=== PATIENT | male | born 1970 | race Caucasian/White ===

== ENCOUNTER 2016-11-01 01:07 | Emergency (ER) | payer SELFPAY ==
[~2016-11-01] VITALS: Ht 177.8 cm; Wt 80.0 kg
[2016-11-01 01:09] VITALS: BP 131/99; PULSE 105; RESP 15; TEMP 98.3; O2SAT 97
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
[2016-11-01 03:59] LABS: EOSINOPHIL # 0.1 TH/MM3 (0-0.4); EOSINOPHIL % 2.1 % (0.0-4.0); LYMPH % 30.4 % (9.0-44.0); LYMPHOCYTE # 1.1 TH/MM3 (1.0-4.8); MEAN CELL VOLUME 103.9 FL (80.0-100.0); MEAN CORPUSCULAR HEMOGLOBIN 36.5 PG (27.0-34.0); MEAN CORPUSCULAR HGB CONC 35.1 % (32.0-36.0); MONO % 10.8 % (0.0-8.0); NEUT % 55.7 % (16.0-70.0); PLATELET COUNT 52 TH/MM3 (150-450); RED BLOOD COUNT 3.08 MIL/MM3 (4.50-5.90); RED CELL DISTRIBUTION WIDTH 12.1 % (11.6-17.2); WHITE BLOOD COUNT 3.6 TH/MM3 (4.0-11.0)
[2016-11-01 04:01] LABS: BICARBONATE 28.9 MEQ/L (21.0-32.0); POTASSIUM 3.3 MEQ/L (3.5-5.1)
[2016-11-01 04:04] LABS: HEMO FLAGS AUTO DIFF
[2016-11-01 05:57] LABS: SCAN/DIFF AUTO DIFF CONFIRMED
[2016-11-01] MEDS ORDERED: POTASSIUM CHLORIDE 10 MEQ CONTROLLED RELEASE TAB PO ONE (06:00)
[2016-11-01 07:57] VITALS: BP 124/83; PULSE 89; RESP 16; TEMP 97.9; O2SAT 99
--- NOTE | 2016-11-01 16:11 | PD ---
Physical Exam Date Seen by Provider: Nov 01, 2016 Time Seen by Provider: 16:08 Narrative For full history and physical examination please see previous provider's notes. Presented voluntarily to the emergency department for psychiatric evaluation. Data Data Last Documented VS Vital Signs Date Time Temp Pulse Resp B/P (MAP) Pulse Ox O2 Delivery O2 Flow Rate FiO2 11/01/16 07:57 97.9 89 16 124/83 (97) 99 Room Air Orders Orders Complete Blood Count With Diff (11/01/16 01:39) Basic Metabolic Panel (Bmp) (11/01/16 01:39) Psych Screen (11/01/16 01:39) Drug Screen, Random Urine (11/01/16 01:39) Alcohol (Ethanol) (11/01/16 01:39) Potassium Chloride (Kcl) (11/01/16 06:00) Diet Regular Basic (11/01/16 Breakfast) Diet Regular Basic (11/01/16 Lunch) Labs Laboratory Tests Test 11/01/16 03:25 White Blood Count 3.6 TH/MM3 Red Blood Count 3.08 MIL/MM3 Hemoglobin 11.2 GM/DL Hematocrit 32.0 % Mean Corpuscular Volume 103.9 FL Mean Corpuscular Hemoglobin 36.5 PG Mean Corpuscular Hemoglobin Concent 35.1 % Red Cell Distribution Width 12.1 % Platelet Count 52 TH/MM3 Mean Platelet Volume 8.1 FL Neutrophils (%) (Auto) 55.7 % Lymphocytes (%) (Auto) 30.4 % Monocytes (%) (Auto) 10.8 % Eosinophils (%) (Auto) 2.1 % Basophils (%) (Auto) 1.0 % Neutrophils # (Auto) 2.0 TH/MM3 Lymphocytes # (Auto) 1.1 TH/MM3 Monocytes # (Auto) 0.4 TH/MM3 Eosinophils # (Auto) 0.1 TH/MM3 Basophils # (Auto) 0.0 TH/MM3 CBC Comment AUTO DIFF Differential Comment AUTO DIFF CONFIRMED Blood Urea Nitrogen 4 MG/DL Creatinine 0.62 MG/DL Random Glucose 95 MG/DL Calcium Level 8.1 MG/DL Sodium Level 135 MEQ/L Potassium Level 3.3 MEQ/L Chloride Level 98 MEQ/L Carbon Dioxide Level 28.9 MEQ/L Anion Gap 8 MEQ/L Estimat Glomerular Filtration Rate 138 ML/MIN Ethyl Alcohol Level 432 MG/DL [facility] Medical Record Reviewed: Yes Supervised Visit with CHOLO: No Narrative Course Patient is a 46-year-old male that presented voluntarily to the emergency department for psychiatric evaluation. He was seen and evaluated in the emergency Department and medically cleared. He was then seen and evaluated by psychiatric nurse practitioner. Patient was deemed competent and safe to be discharged home. He will follow-up at [facility] on his own for alcohol detox. Diagnosis Primary Impression: Alcohol intoxication Qualified Codes: F10.929 - Alcohol use, unspecified with intoxication, unspecified Additional Impressions: Substance induced mood disorder Thrombocytopenia Hypokalemia Referrals: [facility] 1 day Patient Instructions: Abuse of Alcohol (ED), Alcohol Intoxication (ED), General Instructions Additional Instruction: Avoid excessive intake of alcohol or avoid it altogether Drink more water, eat a well-balanced diet Follow-up with your primary doctor Go to the [facility] for alcohol detox Return to emergency department for any new or worsening symptoms Med/Other Pt SpecificInfo: No Change to Meds Scripts No Active Prescriptions or Reported Meds Disposition: 01 DISCHARGE HOME Condition: Stable Debbie York Nov 01, 2016 16:11
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
== END 2016-11-01 16:19 | disposition home or self-care (01) ==
LOC: NEPD 01:07
DX: F10.229 Alcohol dependence with intoxication, unspecified (principal); F10.24 Alcohol dependence with alcohol-induced mood disorder; D69.6 Thrombocytopenia, unspecified; E87.6 Hypokalemia; F31.9 Bipolar disorder, unspecified; R56.9 Unspecified convulsions; F17.210 Nicotine dependence, cigarettes, uncomplicated; F12.90 Cannabis use, unspecified, uncomplicated; Y90.8 Blood alcohol level of 240 mg/100 ml or more
CPT/HCPCS: 80048; 80307; 85025; 99283

== ENCOUNTER 2016-11-09 22:08 | Emergency (ER) | payer SELFPAY ==
[~2016-11-09] VITALS: Ht 177.8 cm; Wt 70.0 kg
[2016-11-09 22:12] VITALS: BP 158/104; PULSE 102; RESP 16; TEMP 98.3; O2SAT 96
[2016-11-10 04:55] VITALS: BP 128/88; PULSE 77; RESP 18; O2SAT 99
[2016-11-10 05:46] LABS: AUTOMATED NEUTROPHIL # 1.4 TH/MM3 (1.8-7.7); BASOPHIL % 0.7 % (0.0-2.0); EOSINOPHIL # 0.1 TH/MM3 (0-0.4); EOSINOPHIL % 1.9 % (0.0-4.0); HEMATOCRIT 35.9 % (39.0-51.0); LYMPH % 42.5 % (9.0-44.0); LYMPHOCYTE # 1.3 TH/MM3 (1.0-4.8); MEAN CELL VOLUME 103.3 FL (80.0-100.0); MEAN CORPUSCULAR HEMOGLOBIN 36.1 PG (27.0-34.0); MONO % 7.7 % (0.0-8.0); NEUT % 47.2 % (16.0-70.0); PLATELET COUNT 52 TH/MM3 (150-450); RED BLOOD COUNT 3.47 MIL/MM3 (4.50-5.90); RED CELL DISTRIBUTION WIDTH 12.1 % (11.6-17.2)
[2016-11-10 05:50] LABS: HEMO FLAGS AUTO DIFF
[2016-11-10 05:56] LABS: ANION GAP 11 MEQ/L (5-15); AST (GOT) 180 U/L (15-37); BICARBONATE 26.5 MEQ/L (21.0-32.0); BLOOD UREA NITROGEN 3 MG/DL (7-18); CHLORIDE 100 MEQ/L (98-107); GLOMERULAR FILTRATION RATE 150 ML/MIN (>89); POTASSIUM 3.7 MEQ/L (3.5-5.1); SODIUM (NA) 137 MEQ/L (136-145)
[2016-11-10 05:58] LABS: ALT (GPT) 74 U/L (12-78)
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
[2016-11-10 06:02] LABS: ALCOHOL 295 MG/DL (0-5); ALKALINE PHOSPHATASE 151 U/L (45-117); TOTAL BILIRUBIN ADULT 0.5 MG/DL (0.2-1.0)
[2016-11-10 06:40] LABS: SCAN/DIFF AUTO DIFF CONFIRMED
[2016-11-10 06:41] LABS: PLATELET ESTIMATE SMEAR LOW (NORMAL); PLATELET MORPHOLOGY NORMAL (NORMAL)
[2016-11-10 12:20] VITALS: BP 124/80; PULSE 78; RESP 16; TEMP 98.4; O2SAT 98
[2016-11-10 16:34] VITALS: BP 127/78; PULSE 74; RESP 16; O2SAT 98
[2016-11-10] MEDS ORDERED: LORazepam 2 MG TAB PO PRN (17:15)
[2016-11-10] MEDS ORDERED: LORazepam 1 MG TAB PO PRN (17:15)
[2016-11-10] MEDS ORDERED: LORazepam 2 MG/ML VIAL IV PUSH PRN ×4 (17:15)
[2016-11-10] MEDS ORDERED: FLUMAZENIL 0.5 MG/5 ML VIAL IV PUSH PRN (17:15)
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
--- NOTE | 2016-11-10 19:01 | PD ---
Physical Exam Date Seen by Provider: Nov 10, 2016 Time Seen by Provider: 18:57 Data Data Last Documented VS Vital Signs Date Time Temp Pulse Resp B/P (MAP) Pulse Ox O2 Delivery O2 Flow Rate FiO2 11/10/16 16:34 74 16 127/78 (94) 98 Room Air 11/10/16 12:20 98.4 Orders Orders Complete Blood Count With Diff (11/10/16 04:59) Comprehensive Metabolic Panel (11/10/16 04:59) Psych Screen (11/10/16 04:59) Drug Screen, Random Urine (11/10/16 04:59) Alcohol (Ethanol) (11/10/16 04:59) Diet Regular Basic (11/10/16 Lunch) Alcohol Withdrawal Asmt-Ciwa ONCE (11/10/16 17:05) Flumazenil Inj (Romazicon Inj) (11/10/16 17:15) Lorazepam (Ativan) (11/10/16 17:15) Lorazepam Inj (Ativan Inj) (11/10/16 17:15) Lorazepam (Ativan) (11/10/16 17:15) Lorazepam Inj (Ativan Inj) (11/10/16 17:15) Lorazepam Inj (Ativan Inj) (11/10/16 17:15) Lorazepam Inj (Ativan Inj) (11/10/16 17:15) Labs Laboratory Tests Test 11/10/16 05:30 White Blood Count 3.0 TH/MM3 Red Blood Count 3.47 MIL/MM3 Hemoglobin 12.5 GM/DL Hematocrit 35.9 % Mean Corpuscular Volume 103.3 FL Mean Corpuscular Hemoglobin 36.1 PG Mean Corpuscular Hemoglobin Concent 35.0 % Red Cell Distribution Width 12.1 % Platelet Count 52 TH/MM3 Mean Platelet Volume 7.4 FL Neutrophils (%) (Auto) 47.2 % Lymphocytes (%) (Auto) 42.5 % Monocytes (%) (Auto) 7.7 % Eosinophils (%) (Auto) 1.9 % Basophils (%) (Auto) 0.7 % Neutrophils # (Auto) 1.4 TH/MM3 Lymphocytes # (Auto) 1.3 TH/MM3 Monocytes # (Auto) 0.2 TH/MM3 Eosinophils # (Auto) 0.1 TH/MM3 Basophils # (Auto) 0.0 TH/MM3 CBC Comment AUTO DIFF Differential Comment AUTO DIFF CONFIRMED Platelet Estimate LOW Platelet Morphology Comment NORMAL Blood Urea Nitrogen 3 MG/DL Creatinine 0.58 MG/DL Random Glucose 77 MG/DL Total Protein 7.6 GM/DL Albumin 3.7 GM/DL Calcium Level 8.7 MG/DL Alkaline Phosphatase 151 U/L Aspartate Amino Transf (AST/SGOT) 180 U/L Alanine Aminotransferase (ALT/SGPT) 74 U/L Total Bilirubin 0.5 MG/DL Sodium Level 137 MEQ/L Potassium Level 3.7 MEQ/L Chloride Level 100 MEQ/L Carbon Dioxide Level 26.5 MEQ/L Anion Gap 11 MEQ/L Estimat Glomerular Filtration Rate 150 ML/MIN Urine Opiates Screen NEG Urine Barbiturates Screen NEG Urine Amphetamines Screen NEG Urine Benzodiazepines Screen NEG Urine Cocaine Screen NEG Urine Cannabinoids Screen NEG Ethyl Alcohol Level 295 MG/DL MDM Supervised Visit with CHOLO: No Narrative Course 46-year-old male who came to the ED seeking voluntary psychiatric evaluation. He was initially seen by MILAN Soriano and medically cleared. He was evaluated by MILAN Stone and cleared for follow-up with . Please see their notes for full details. On my evaluation the patient is alert and oriented. He has no somatic complaints. GENERAL: Well-nourished, well-developed cooperative white male in no acute distress. SKIN: Focused skin assessment warm/dry. HEAD: Normocephalic. EYES: No scleral icterus. No injection or drainage. NECK: Supple, trachea midline. No JVD or lymphadenopathy. CARDIOVASCULAR: Regular rate and rhythm without murmurs, gallops, or rubs. RESPIRATORY: Breath sounds equal bilaterally. No accessory muscle use. GASTROINTESTINAL: Abdomen soft, non-tender, nondistended. MUSCULOSKELETAL: No cyanosis, or edema. Moves easily from standing to sitting position. BACK: Nontender without obvious deformity. No CVA tenderness. The patient is stable and discharged for outpatient detox with [facility]. Diagnosis Primary Impression: Medical clearance for psychiatric admission Additional Impression: Acute alcohol intoxication Qualified Codes: F10.929 - Alcohol use, unspecified with intoxication, unspecified Referrals: [facility] (Out patient) Additional Instruction: [facility] for detox as discussed with the nurse practitioner. Return to the ED for any urgent or emergent medical condition. Scripts No Active Prescriptions or Reported Meds Disposition: DISCHARGE HOME Condition: Stable Chloe Alejandre Nov 10, 2016 19:01
== END 2016-11-10 19:35 | disposition home or self-care (01) ==
LOC: NEPD 22:08
DX: F10.220 Alcohol dependence with intoxication, uncomplicated (principal); F17.200 Nicotine dependence, unspecified, uncomplicated; Y90.8 Blood alcohol level of 240 mg/100 ml or more
CPT/HCPCS: 80053; 80307; 85025; 99284

== ENCOUNTER 2016-12-24 04:52 | Emergency (ER) | payer OTHER ==
[~2016-12-24] VITALS: Ht 172.7 cm; Wt 80.0 kg
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
[2016-12-24 05:32] VITALS: BP 127/78; PULSE 93; RESP 20; TEMP 97.6
[2016-12-24 05:55] LABS: AUTOMATED NEUTROPHIL # 4.8 TH/MM3 (1.8-7.7); BASOPHIL # 0.1 TH/MM3 (0-0.2); BASOPHIL % 1.3 % (0.0-2.0); EOSINOPHIL # 0.6 TH/MM3 (0-0.4); EOSINOPHIL % 7.6 % (0.0-4.0); HEMATOCRIT 35.1 % (39.0-51.0); HEMO FLAGS DIFF FINAL; LYMPH % 20.8 % (9.0-44.0); LYMPHOCYTE # 1.6 TH/MM3 (1.0-4.8); MEAN CELL VOLUME 104.6 FL (80.0-100.0); MEAN CORPUSCULAR HEMOGLOBIN 36.8 PG (27.0-34.0); MEAN CORPUSCULAR HGB CONC 35.2 % (32.0-36.0); MONO % 7.7 % (0.0-8.0); NEUT % 62.6 % (16.0-70.0); PLATELET COUNT 106 TH/MM3 (150-450); RED BLOOD COUNT 3.35 MIL/MM3 (4.50-5.90); RED CELL DISTRIBUTION WIDTH 12.8 % (11.6-17.2); WHITE BLOOD COUNT 7.7 TH/MM3 (4.0-11.0)
[2016-12-24 06:10] LABS: ALT (GPT) 114 U/L (12-78); ANION GAP 11 MEQ/L (5-15); AST (GOT) 238 U/L (15-37); BLOOD UREA NITROGEN 4 MG/DL (7-18); CHLORIDE 94 MEQ/L (98-107); GLOMERULAR FILTRATION RATE 153 ML/MIN (>89); POTASSIUM 3.6 MEQ/L (3.5-5.1); SODIUM (NA) 131 MEQ/L (136-145)
[2016-12-24 06:13] LABS: ALKALINE PHOSPHATASE 147 U/L (45-117); TOTAL BILIRUBIN ADULT 0.5 MG/DL (0.2-1.0)
[2016-12-24 06:30] LABS: ACETAMINOPHEN LESS THAN 2.0 MCG/ML (10.0-30.0); ALCOHOL 456 MG/DL (0-5)
[2016-12-24] MEDS ORDERED: LORazepam 2 MG/ML VIAL IV PUSH PRN ×4 (07:00)
[2016-12-24] MEDS ORDERED: LORazepam 1 MG TAB PO PRN (07:00)
[2016-12-24] MEDS ORDERED: FLUMAZENIL 0.5 MG/5 ML VIAL IV PUSH PRN (07:00)
[2016-12-24] MEDS ORDERED: SODIUM CHLOR 0.9% 1000 ML INJ 1,000 ML IV ONE (07:00)
[2016-12-24] MEDS ORDERED: LORazepam 2 MG TAB PO PRN (07:00)
[2016-12-24 09:49] VITALS: BP 111/64; PULSE 77; RESP 20; TEMP 97.5; O2SAT 97
[2016-12-24 12:00] VITALS: BP 90/52; PULSE 80; RESP 16; TEMP 98.6; O2SAT 97
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
--- NOTE | 2016-12-24 18:06 | PD ---
Physical Exam Date Seen by Provider: Dec 24, 2016 Time Seen by Provider: 18:03 Narrative 46 yo male here for chen act. patient was examined by previous provider please refer to his note. I was asked to dispo patient. Patient seen and evaluated by Psych nurse MILAN. BA lifted. patient clinically sober. Agrees with outpatient rehab at [facility]. Denies medical complains to me. Feels ready to go home. Data Data Last Documented VS Vital Signs Date Time Temp Pulse Resp B/P (MAP) Pulse Ox O2 Delivery O2 Flow Rate FiO2 12/24/16 12:00 98.6 80 16 90/52 (65) 97 12/24/16 09:49 Room Air Orders Orders Complete Blood Count With Diff (12/24/16 05:03) Comprehensive Metabolic Panel (12/24/16 05:03) Psych Screen (12/24/16 05:03) Drug Screen, Random Urine (12/24/16 05:03) Alcohol (Ethanol) (12/24/16 05:03) Salicylates (Aspirin) (12/24/16 05:03) Tylenol (Acetaminophen) (12/24/16 05:03) Sodium Chlor 0.9% 1000 Ml Inj (Ns 1000 M (12/24/16 07:00) Iv Access Insert/Monitor (12/24/16 06:46) Alcohol Withdrawal Asmt-Ciwa ONCE (12/24/16 06:46) Flumazenil Inj (Romazicon Inj) (12/24/16 07:00) Lorazepam (Ativan) (12/24/16 07:00) Lorazepam Inj (Ativan Inj) (12/24/16 07:00) Lorazepam (Ativan) (12/24/16 07:00) Lorazepam Inj (Ativan Inj) (12/24/16 07:00) Lorazepam Inj (Ativan Inj) (12/24/16 07:00) Lorazepam Inj (Ativan Inj) (12/24/16 07:00) Diet Regular Basic (12/24/16 Breakfast) Diet Regular Basic (12/24/16 Dinner) Ed Discharge Order (12/24/16 17:39) Labs Laboratory Tests Test 12/24/16 05:24 12/24/16 09:45 White Blood Count 7.7 TH/MM3 Red Blood Count 3.35 MIL/MM3 Hemoglobin 12.3 GM/DL Hematocrit 35.1 % Mean Corpuscular Volume 104.6 FL Mean Corpuscular Hemoglobin 36.8 PG Mean Corpuscular Hemoglobin Concent 35.2 % Red Cell Distribution Width 12.8 % Platelet Count 106 TH/MM3 Mean Platelet Volume 8.6 FL Neutrophils (%) (Auto) 62.6 % Lymphocytes (%) (Auto) 20.8 % Monocytes (%) (Auto) 7.7 % Eosinophils (%) (Auto) 7.6 % Basophils (%) (Auto) 1.3 % Neutrophils # (Auto) 4.8 TH/MM3 Lymphocytes # (Auto) 1.6 TH/MM3 Monocytes # (Auto) 0.6 TH/MM3 Eosinophils # (Auto) 0.6 TH/MM3 Basophils # (Auto) 0.1 TH/MM3 CBC Comment DIFF FINAL Differential Comment Blood Urea Nitrogen 4 MG/DL Creatinine 0.57 MG/DL Random Glucose 92 MG/DL Total Protein 7.7 GM/DL Albumin 3.9 GM/DL Calcium Level 8.5 MG/DL Alkaline Phosphatase 147 U/L Aspartate Amino Transf (AST/SGOT) 238 U/L Alanine Aminotransferase (ALT/SGPT) 114 U/L Total Bilirubin 0.5 MG/DL Sodium Level 131 MEQ/L Potassium Level 3.6 MEQ/L Chloride Level 94 MEQ/L Carbon Dioxide Level 26.0 MEQ/L Anion Gap 11 MEQ/L Estimat Glomerular Filtration Rate 153 ML/MIN Salicylates Level LESS THAN 1.7 MG/DL Acetaminophen Level LESS THAN 2.0 MCG/ML Ethyl Alcohol Level 456 MG/DL Urine Opiates Screen NEG Urine Barbiturates Screen NEG Urine Amphetamines Screen NEG Urine Benzodiazepines Screen NEG Urine Cocaine Screen NEG Urine Cannabinoids Screen NEG MDM Medical Record Reviewed: Yes Supervised Visit with CHOLO: No Differential Diagnosis alcohol abuse vs suicidal ideation vs alcohol dependence vs substance induces mood disorder Narrative Course 46 yo male here for chen act. patient was examined by previous provider please refer to his note. I was asked to dispo patient. Patient seen and evaluated by Psych nurse MILAN. BA lifted. patient clinically sober. Agrees with outpatient rehab at [facility]. Denies medical complains to me. Feels ready to go home. Told to follow up with [facility] and given outpatient resource information. See ED if worsening symptoms. Diagnosis Primary Impression: Alcohol dependence with acute alcoholic intoxication Qualified Codes: F10.220 - Alcohol dependence with intoxication, uncomplicated Patient Instructions: General Instructions, Alcohol Use Disorder (ED) Departure Forms: Tests/Procedures Additional Instruction: Contract for safety. Follow-up with [facility]. Return to ED if symptoms get worse. Med/Other Pt SpecificInfo: No Change to Meds Scripts No Active Prescriptions or Reported Meds Disposition: 01 DISCHARGE HOME Condition: Jose Montes Dec 24, 2016 18:06
== END 2016-12-24 18:29 | disposition home or self-care (01) ==
LOC: NEPD 04:52 → NEPJ 18:29
DX: F10.220 Alcohol dependence with intoxication, uncomplicated (principal); F12.10 Cannabis abuse, uncomplicated; F17.200 Nicotine dependence, unspecified, uncomplicated; F31.9 Bipolar disorder, unspecified; F41.9 Anxiety disorder, unspecified; F03.90 Unspecified dementia, unspecified severity, without behavioral disturbance, psychotic disturbance, mood disturbance, and anxiety; R56.9 Unspecified convulsions; Z59.0 Homelessness
CPT/HCPCS: 80053; 80307; 85025; 96360; 99284; J7030

== ENCOUNTER 2017-01-09 23:03 | Emergency (ER) | payer OTHER ==
[2017-01-10] MEDS ORDERED: KETOCONAZOLE 2% CREAM 15 GM TOPICAL ONE (00:15)
[2017-01-10 00:50] LABS: ALT (GPT) 130 U/L (12-78); ANION GAP 9 MEQ/L (5-15); AST (GOT) 230 U/L (15-37); BICARBONATE 25.3 MEQ/L (21.0-32.0); BLOOD UREA NITROGEN 3 MG/DL (7-18); CHLORIDE 91 MEQ/L (98-107); GLOMERULAR FILTRATION RATE 138 ML/MIN (>89); POTASSIUM 3.3 MEQ/L (3.5-5.1); SODIUM (NA) 125 MEQ/L (136-145)
[2017-01-10 00:54] LABS: ALKALINE PHOSPHATASE 124 U/L (45-117); TOTAL BILIRUBIN ADULT 0.6 MG/DL (0.2-1.0)
[2017-01-10 00:57] LABS: ALCOHOL 393 MG/DL (0-5)
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
[2017-01-10 02:00] VITALS: BP 106/59; PULSE 82; RESP 18; TEMP 97.7; O2SAT 96
[2017-01-10 05:58] VITALS: BP 101/65; PULSE 88; RESP 16; TEMP 98.6; O2SAT 98
[2017-01-10 09:24] VITALS: BP 95/50; PULSE 85; RESP 18; O2SAT 97
[2017-01-10 10:47] VITALS: BP 120/56; PULSE 91; RESP 16; O2SAT 98
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
--- NOTE | 2017-01-10 15:54 | PD ---
Physical Exam Time Seen by Provider: 15:[address] Schmitz has evaluated the patient, lifted the Dyer act and cleared the patient for discharge. Data Data Last Documented VS Vital Signs Date Time Temp Pulse Resp B/P (MAP) Pulse Ox O2 Delivery O2 Flow Rate FiO2 01/10/17 10:47 91 16 120/56 (77) 98 Room Air 01/10/17 05:58 98.6 Orders Orders Comprehensive Metabolic Panel (01/10/17 00:06) Psych Screen (01/10/17 00:06) Drug Screen, Random Urine (01/10/17 00:06) Alcohol (Ethanol) (01/10/17 00:06) Ketoconazole 2% Cream (Nizoral 2% Cream) (01/10/17 00:15) Wound Care (01/10/17 00:08) Diet Regular Basic (01/10/17 Breakfast) Diet Regular Basic (01/10/17 Lunch) Diet Regular Basic (01/10/17 Dinner) Labs Laboratory Tests Test 01/10/17 00:10 01/10/17 00:31 Blood Urea Nitrogen 3 MG/DL Creatinine 0.62 MG/DL Random Glucose 94 MG/DL Total Protein 7.4 GM/DL Albumin 3.9 GM/DL Calcium Level 8.8 MG/DL Alkaline Phosphatase 124 U/L Aspartate Amino Transf (AST/SGOT) 230 U/L Alanine Aminotransferase (ALT/SGPT) 130 U/L Total Bilirubin 0.6 MG/DL Sodium Level 125 MEQ/L Potassium Level 3.3 MEQ/L Chloride Level 91 MEQ/L Carbon Dioxide Level 25.3 MEQ/L Anion Gap 9 MEQ/L Estimat Glomerular Filtration Rate 138 ML/MIN Ethyl Alcohol Level 393 MG/DL Urine Opiates Screen NEG Urine Barbiturates Screen NEG Urine Amphetamines Screen NEG Urine Benzodiazepines Screen NEG Urine Cocaine Screen POS Urine Cannabinoids Screen NEG MDM Supervised Visit with CHOLO: No Narrative Course Dr. Schmitz has evaluated the patient, lifted Dyer act and cleared the patient for discharge. Patient contracts safety. Denies suicidal or homicidal ideations. Patient will be provided community resource packet to [facility] for follow-up. Has friends and family for support. Patient was medically cleared by alternate provider prior to psych screening. Patient has been evaluated by psychiatry and and is now cleared for discharge. Diagnosis Primary Impression: Alcohol abuse Referrals: [facility] (Out patient) [facility] Primary Care Physician Psychiatrist Jessica [facility] Patient Instructions: Abuse of Alcohol (ED), Alcohol Dependence (ED), Alcohol Intoxication (ED), General Instructions Additional Instruction: Contract safety to your self and others Stop drinking alcohol Follow-up with psychiatry Follow-up with primary care provider Follow-up with [facility] Return to the emergency department immediately with worsening of symptoms Med/Other Pt SpecificInfo: No Change to Meds, No Meds Exist/No RX given Scripts No Active Prescriptions or Reported Meds Disposition: 01 DISCHARGE HOME Condition: Stable Palma Triana Jan 10, 2017 15:54
== END 2017-01-10 17:23 | disposition home or self-care (01) ==
LOC: NEDAMB 23:03 → NEPJ 01-10 17:23
DX: F10.10 Alcohol abuse, uncomplicated (principal); F14.10 Cocaine abuse, uncomplicated; F31.9 Bipolar disorder, unspecified; F41.9 Anxiety disorder, unspecified; F03.90 Unspecified dementia, unspecified severity, without behavioral disturbance, psychotic disturbance, mood disturbance, and anxiety; R56.9 Unspecified convulsions; F17.200 Nicotine dependence, unspecified, uncomplicated
CPT/HCPCS: 80053; 80307; 99284

== ENCOUNTER 2017-01-13 23:07 | Emergency (ER) | payer OTHER ==
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
[2017-01-14 00:16] LABS: AUTOMATED NEUTROPHIL # 2.2 TH/MM3 (1.8-7.7); BASOPHIL # 0.1 TH/MM3 (0-0.2); BASOPHIL % 2.3 % (0.0-2.0); EOSINOPHIL # 0.9 TH/MM3 (0-0.4); EOSINOPHIL % 17.3 % (0.0-4.0); HEMATOCRIT 33.5 % (39.0-51.0); HEMO FLAGS DIFF FINAL; LYMPH % 28.2 % (9.0-44.0); LYMPHOCYTE # 1.5 TH/MM3 (1.0-4.8); MEAN CELL VOLUME 104.5 FL (80.0-100.0); MEAN CORPUSCULAR HGB CONC 34.4 % (32.0-36.0); MONO % 8.8 % (0.0-8.0); NEUT % 43.4 % (16.0-70.0); PLATELET COUNT 102 TH/MM3 (150-450); RED BLOOD COUNT 3.21 MIL/MM3 (4.50-5.90); RED CELL DISTRIBUTION WIDTH 12.5 % (11.6-17.2); WHITE BLOOD COUNT 5.2 TH/MM3 (4.0-11.0)
[2017-01-14 00:37] LABS: ALT (GPT) 117 U/L (12-78); ANION GAP 7 MEQ/L (5-15); AST (GOT) 201 U/L (15-37); BICARBONATE 26.7 MEQ/L (21.0-32.0); BLOOD UREA NITROGEN 3 MG/DL (7-18); CHLORIDE 99 MEQ/L (98-107); GLOMERULAR FILTRATION RATE 159 ML/MIN (>89); POTASSIUM 3.6 MEQ/L (3.5-5.1); SODIUM (NA) 133 MEQ/L (136-145)
[2017-01-14 00:39] LABS: ALKALINE PHOSPHATASE 114 U/L (45-117); TOTAL BILIRUBIN ADULT 0.3 MG/DL (0.2-1.0)
[2017-01-14 00:51] LABS: ACETAMINOPHEN LESS THAN 2.0 MCG/ML (10.0-30.0); ALCOHOL 450 MG/DL (0-5)
[2017-01-14 09:40] VITALS: BP 101/74; PULSE 98; RESP 18; O2SAT 98
--- NOTE | 2017-01-14 10:21 | EKG ---
Date Performed: 01/14/2017 Time Performed: 00:04:35 PTAGE: 46 years EKG: Sinus rhythm SEPTAL MYOCARDIAL INFARCTION ABNORMAL ECG PREVIOUS TRACING : 08/02/2015 14.40 Compared to the previous tracing tachycardia no longer pres ent DOCTOR: Lissa Self Interpretating Date/Time 01/14/2017 10:19:52
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
--- NOTE | 2017-01-14 12:54 | PD ---
Physical Exam Date Seen by Provider: Jan 14, 2017 Time Seen by Provider: 12:53 Narrative 46-year-old male previously medically cleared for psychiatric evaluation after being Dyer acted. She has been seen by Dr. Schmitz, the psychiatrist and cleared for discharge. Plan is for the patient to follow up with [facility]. Patient continues to be medically stable for discharge at this time. Data Data Last Documented VS Vital Signs Date Time Temp Pulse Resp B/P (MAP) Pulse Ox O2 Delivery O2 Flow Rate FiO2 01/14/17 09:40 98 18 01/14/17 09:40 101/74 (83) 98 Room Air Orders Orders Complete Blood Count With Diff (01/13/17 23:45) Comprehensive Metabolic Panel (01/13/17 23:45) Urinalysis - C+S If Indicated (01/13/17 23:45) Electrocardiogram (01/13/17 23:45) Psych Screen (01/13/17 23:45) Drug Screen, Random Urine (01/13/17 23:45) Alcohol (Ethanol) (01/13/17 23:45) Salicylates (Aspirin) (01/13/17 23:45) Tylenol (Acetaminophen) (01/13/17 23:45) Diet Regular Basic (01/14/17 Breakfast) Diet Regular Basic (01/14/17 Lunch) Labs Laboratory Tests Test 01/14/17 00:00 White Blood Count 5.2 TH/MM3 Red Blood Count 3.21 MIL/MM3 Hemoglobin 11.5 GM/DL Hematocrit 33.5 % Mean Corpuscular Volume 104.5 FL Mean Corpuscular Hemoglobin 36.0 PG Mean Corpuscular Hemoglobin Concent 34.4 % Red Cell Distribution Width 12.5 % Platelet Count 102 TH/MM3 Mean Platelet Volume 7.6 FL Neutrophils (%) (Auto) 43.4 % Lymphocytes (%) (Auto) 28.2 % Monocytes (%) (Auto) 8.8 % Eosinophils (%) (Auto) 17.3 % Basophils (%) (Auto) 2.3 % Neutrophils # (Auto) 2.2 TH/MM3 Lymphocytes # (Auto) 1.5 TH/MM3 Monocytes # (Auto) 0.5 TH/MM3 Eosinophils # (Auto) 0.9 TH/MM3 Basophils # (Auto) 0.1 TH/MM3 CBC Comment DIFF FINAL Differential Comment Blood Urea Nitrogen 3 MG/DL Creatinine 0.55 MG/DL Random Glucose 96 MG/DL Total Protein 7.2 GM/DL Albumin 3.7 GM/DL Calcium Level 8.3 MG/DL Alkaline Phosphatase 114 U/L Aspartate Amino Transf (AST/SGOT) 201 U/L Alanine Aminotransferase (ALT/SGPT) 117 U/L Total Bilirubin 0.3 MG/DL Sodium Level 133 MEQ/L Potassium Level 3.6 MEQ/L Chloride Level 99 MEQ/L Carbon Dioxide Level 26.7 MEQ/L Anion Gap 7 MEQ/L Estimat Glomerular Filtration Rate 159 ML/MIN Salicylates Level 2.2 MG/DL Acetaminophen Level LESS THAN 2.0 MCG/ML Ethyl Alcohol Level 450 MG/DL [facility] Medical Record Reviewed: Yes Supervised Visit with CHOLO: Yes Narrative Course 46-year-old male previously medically cleared for psychiatric evaluation after being Dyer acted. She has been seen by Dr. Schmitz, the psychiatrist and cleared for discharge. Plan is for the patient to follow up with [facility]. Patient continues to be medically stable for discharge at this time. Diagnosis Primary Impression: Alcohol abuse Referrals: [facility] (Out patient) Patient Instructions: Abuse of Alcohol (ED), General Instructions Med/Other Pt SpecificInfo: No Meds Exist/No RX given Scripts No Active Prescriptions or Reported Meds Disposition: 01 DISCHARGE HOME Condition: Stable Dion Cortez Jan 14, 2017 12:54
[2017-01-14 13:14] VITALS: BP 127/70; TEMP 98.2
== END 2017-01-14 13:15 | disposition home or self-care (01) ==
LOC: NEPD 23:07
DX: F10.10 Alcohol abuse, uncomplicated (principal); R94.31 Abnormal electrocardiogram [ECG] [EKG]; F31.9 Bipolar disorder, unspecified; F41.9 Anxiety disorder, unspecified; F03.90 Unspecified dementia, unspecified severity, without behavioral disturbance, psychotic disturbance, mood disturbance, and anxiety; F20.9 Schizophrenia, unspecified; R56.9 Unspecified convulsions; F17.200 Nicotine dependence, unspecified, uncomplicated
CPT/HCPCS: 80053; 80307; 85025; 93005; 99285

== ENCOUNTER 2017-01-18 00:15 | Emergency (ER) | payer OTHER ==
[~2017-01-18] VITALS: Ht 177.8 cm; Wt 77.0 kg
[2017-01-18 00:38] VITALS: BP 136/78; PULSE 78; RESP 16; TEMP 98.4; O2SAT 96
[2017-01-18 01:19] LABS: AUTOMATED NEUTROPHIL # 2.6 TH/MM3 (1.8-7.7); BASOPHIL # 0.1 TH/MM3 (0-0.2); EOSINOPHIL # 0.7 TH/MM3 (0-0.4); EOSINOPHIL % 13.1 % (0.0-4.0); HEMATOCRIT 35.9 % (39.0-51.0); LYMPH % 26.8 % (9.0-44.0); LYMPHOCYTE # 1.4 TH/MM3 (1.0-4.8); MEAN CELL VOLUME 103.7 FL (80.0-100.0); MEAN CORPUSCULAR HEMOGLOBIN 37.4 PG (27.0-34.0); MONO % 8.1 % (0.0-8.0); PLATELET COUNT 126 TH/MM3 (150-450); RED BLOOD COUNT 3.46 MIL/MM3 (4.50-5.90); RED CELL DISTRIBUTION WIDTH 12.4 % (11.6-17.2); WHITE BLOOD COUNT 5.3 TH/MM3 (4.0-11.0)
[2017-01-18 01:25] LABS: BLOOD, URINE NEG (NEG); GLUCOSE,URINE NEG (NEG); KETONE, URINE NEG (NEG); NITRITE,URINE NEG (NEG); PH, URINE 5.5 (5.0-8.5); URINE COLOR YELLOW (YELLW/STRAW)
[2017-01-18 01:26] LABS: HEMO FLAGS AUTO DIFF
[2017-01-18 01:32] LABS: ALT (GPT) 86 U/L (12-78); ANION GAP 11 MEQ/L (5-15); AST (GOT) 149 U/L (15-37); BICARBONATE 26.4 MEQ/L (21.0-32.0); CHLORIDE 94 MEQ/L (98-107); COMMENT (UR) CULT NOT INDICATED; CULTURE IF INDICATED CULT NOT INDICATED; GLOMERULAR FILTRATION RATE 138 ML/MIN (>89); POTASSIUM 3.6 MEQ/L (3.5-5.1); SODIUM (NA) 131 MEQ/L (136-145)
[2017-01-18 01:38] LABS: ALKALINE PHOSPHATASE 130 U/L (45-117); BLOOD UREA NITROGEN 5 MG/DL (7-18); TOTAL BILIRUBIN ADULT 0.4 MG/DL (0.2-1.0)
[2017-01-18 02:03] LABS: PLATELET ESTIMATE SMEAR LOW (NORMAL); PLATELET MORPHOLOGY NORMAL (NORMAL); SCAN/DIFF AUTO DIFF CONFIRMED
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
[2017-01-18 04:19] VITALS: BP 118/66; PULSE 98; RESP 18; TEMP 98.6; O2SAT 99
[2017-01-18 06:22] VITALS: BP 106/57; PULSE 80; RESP 19; TEMP 99.5; O2SAT 95
[2017-01-18 10:30] VITALS: BP 97/56; PULSE 110; RESP 18
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
--- NOTE | 2017-01-18 15:06 | PD ---
Physical Exam Date Seen by Provider: Jan 18, 2017 Time Seen by Provider: 15:05 Narrative Patient previously medically cleared for psychiatric evaluation. Patient is been seen and evaluated by psychiatric staff and felt to be stable for discharge. Patient remains medically stable for discharge at this time. Outpatient plan is per psychiatric note. Data Data Last Documented VS Vital Signs Date Time Temp Pulse Resp B/P (MAP) Pulse Ox O2 Delivery O2 Flow Rate FiO2 01/18/17 10:30 110 18 97/56 (70) Room Air 01/18/17 06:22 99.5 95 Orders Orders Complete Blood Count With Diff (01/18/17 00:48) Comprehensive Metabolic Panel (01/18/17 00:48) Drug Screen, Random Urine (01/18/17 00:48) Urinalysis - C+S If Indicated (01/18/17 00:48) Psych Screen (01/18/17 00:48) Alcohol (Ethanol) (01/18/17 01:49) Diet Regular Basic (01/18/17 Breakfast) Diet Regular Basic (01/18/17 Lunch) Diet Regular Basic (01/18/17 Dinner) Labs Laboratory Tests Test 01/18/17 00:50 White Blood Count 5.3 TH/MM3 Red Blood Count 3.46 MIL/MM3 Hemoglobin 12.9 GM/DL Hematocrit 35.9 % Mean Corpuscular Volume 103.7 FL Mean Corpuscular Hemoglobin 37.4 PG Mean Corpuscular Hemoglobin Concent 36.0 % Red Cell Distribution Width 12.4 % Platelet Count 126 TH/MM3 Mean Platelet Volume 7.6 FL Neutrophils (%) (Auto) 50.0 % Lymphocytes (%) (Auto) 26.8 % Monocytes (%) (Auto) 8.1 % Eosinophils (%) (Auto) 13.1 % Basophils (%) (Auto) 2.0 % Neutrophils # (Auto) 2.6 TH/MM3 Lymphocytes # (Auto) 1.4 TH/MM3 Monocytes # (Auto) 0.4 TH/MM3 Eosinophils # (Auto) 0.7 TH/MM3 Basophils # (Auto) 0.1 TH/MM3 CBC Comment AUTO DIFF Differential Comment AUTO DIFF CONFIRMED Platelet Estimate LOW Platelet Morphology Comment NORMAL Urine Color YELLOW Urine Turbidity CLEAR Urine pH 5.5 Urine Specific [place] 1.006 Urine Protein NEG mg/dL Urine Glucose (UA) NEG mg/dL Urine Ketones NEG mg/dL Urine Occult Blood NEG Urine Nitrite NEG Urine Bilirubin NEG Urine Urobilinogen LESS THAN 2.0 MG/DL Urine Leukocyte Esterase NEG Urine WBC LESS THAN 1 /hpf Microscopic Urinalysis Comment CULT NOT INDICATED Blood Urea Nitrogen 5 MG/DL Creatinine 0.62 MG/DL Random Glucose 89 MG/DL Total Protein 8.0 GM/DL Albumin 4.1 GM/DL Calcium Level 9.2 MG/DL Alkaline Phosphatase 130 U/L Aspartate Amino Transf (AST/SGOT) 149 U/L Alanine Aminotransferase (ALT/SGPT) 86 U/L Total Bilirubin 0.4 MG/DL Sodium Level 131 MEQ/L Potassium Level 3.6 MEQ/L Chloride Level 94 MEQ/L Carbon Dioxide Level 26.4 MEQ/L Anion Gap 11 MEQ/L Estimat Glomerular Filtration Rate 138 ML/MIN Urine Opiates Screen NEG Urine Barbiturates Screen NEG Urine Amphetamines Screen NEG Urine Benzodiazepines Screen NEG Urine Cocaine Screen NEG Urine Cannabinoids Screen NEG Ethyl Alcohol Level 376 MG/DL [facility] Medical Record Reviewed: Yes Supervised Visit with CHOLO: Yes Narrative Course Patient previously medically cleared for psychiatric evaluation. Patient is been seen and evaluated by psychiatric staff and felt to be stable for discharge. Patient remains medically stable for discharge at this time. Outpatient plan is per psychiatric note. Diagnosis Primary Impression: Alcohol dependence with acute alcoholic intoxication Scripts No Active Prescriptions or Reported Meds Disposition: 01 DISCHARGE HOME Condition: Stable Dion Cortez Jan 18, 2017 15:06
[2017-01-18 15:30] VITALS: BP 134/88; PULSE 96; RESP 18; TEMP 98; O2SAT 98
== END 2017-01-18 15:49 | disposition home or self-care (01) ==
LOC: NEDAMB 00:15 → NEPJ 15:49
DX: F10.229 Alcohol dependence with intoxication, unspecified (principal); F31.9 Bipolar disorder, unspecified; F41.9 Anxiety disorder, unspecified; F03.90 Unspecified dementia, unspecified severity, without behavioral disturbance, psychotic disturbance, mood disturbance, and anxiety; F20.9 Schizophrenia, unspecified; F17.200 Nicotine dependence, unspecified, uncomplicated; Z59.0 Homelessness
CPT/HCPCS: 80053; 80307; 81001; 85025; 99285

== ENCOUNTER 2017-02-12 00:39 | Emergency (ER) | payer OTHER ==
[~2017-02-12] VITALS: Ht 177.8 cm; Wt 82.0 kg
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
[2017-02-12 01:23] VITALS: BP 127/78; PULSE 93; RESP 18; TEMP 97.7; O2SAT 98
[2017-02-12 02:01] LABS: AUTOMATED NEUTROPHIL # 2.8 TH/MM3 (1.8-7.7); BASOPHIL # 0.1 TH/MM3 (0-0.2); BASOPHIL % 1.2 % (0.0-2.0); EOSINOPHIL # 0.3 TH/MM3 (0-0.4); EOSINOPHIL % 5.5 % (0.0-4.0); HEMATOCRIT 34.7 % (39.0-51.0); HEMOGLOBIN 12.3 GM/DL (13.0-17.0); LYMPHOCYTE # 1.3 TH/MM3 (1.0-4.8); MEAN CELL VOLUME 102.2 FL (80.0-100.0); MEAN CORPUSCULAR HEMOGLOBIN 36.3 PG (27.0-34.0); MEAN CORPUSCULAR HGB CONC 35.5 % (32.0-36.0); MEAN PLATELET VOLUME 8.8 FL (7.0-11.0); MONO % 14.4 % (0.0-8.0); MONOCYTE # 0.7 TH/MM3 (0-0.9); NEUT % 53.9 % (16.0-70.0); PLATELET COUNT 65 TH/MM3 (150-450); RED CELL DISTRIBUTION WIDTH 12.1 % (11.6-17.2); WHITE BLOOD COUNT 5.2 TH/MM3 (4.0-11.0)
[2017-02-12 02:15] LABS: BICARBONATE 27.7 MEQ/L (21.0-32.0); CREATININE 0.68 MG/DL (0.60-1.30)
[2017-02-12 06:05] VITALS: BP 108/58; PULSE 90; RESP 14; O2SAT 100
[2017-02-12 12:15] VITALS: BP 108/54; PULSE 80; RESP 17; O2SAT 96
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
--- NOTE | 2017-02-12 14:23 | PD ---
Physical Exam Time Seen by Provider: 14:20 MILAN Vaz has evaluated the patient, but Gomez act and cleared the patient for discharge. Data Data Last Documented VS Vital Signs Date Time Temp Pulse Resp B/P (MAP) Pulse Ox O2 Delivery O2 Flow Rate FiO2 02/12/17 12:15 80 17 108/54 (72) 96 Room Air 02/12/17 01:23 97.7 Orders Orders Complete Blood Count With Diff (02/12/17 00:47) Basic Metabolic Panel (Bmp) (02/12/17 00:47) Psych Screen (02/12/17 00:47) Drug Screen, Random Urine (02/12/17 00:47) Alcohol (Ethanol) (02/12/17 00:47) Diet Regular Basic (02/12/17 Breakfast) Diet Regular Basic (02/12/17 Lunch) Labs Laboratory Tests Test 02/12/17 01:25 02/12/17 01:30 White Blood Count 5.2 TH/MM3 Red Blood Count 3.40 MIL/MM3 Hemoglobin 12.3 GM/DL Hematocrit 34.7 % Mean Corpuscular Volume 102.2 FL Mean Corpuscular Hemoglobin 36.3 PG Mean Corpuscular Hemoglobin Concent 35.5 % Red Cell Distribution Width 12.1 % Platelet Count 65 TH/MM3 Mean Platelet Volume 8.8 FL Neutrophils (%) (Auto) 53.9 % Lymphocytes (%) (Auto) 25.0 % Monocytes (%) (Auto) 14.4 % Eosinophils (%) (Auto) 5.5 % Basophils (%) (Auto) 1.2 % Neutrophils # (Auto) 2.8 TH/MM3 Lymphocytes # (Auto) 1.3 TH/MM3 Monocytes # (Auto) 0.7 TH/MM3 Eosinophils # (Auto) 0.3 TH/MM3 Basophils # (Auto) 0.1 TH/MM3 CBC Comment AUTO DIFF Differential Comment AUTO DIFF CONFIRMED Platelet Estimate LOW Platelet Morphology Comment NORMAL Red Cell Morphology Comment NORMAL Blood Urea Nitrogen 10 MG/DL Creatinine 0.68 MG/DL Random Glucose 97 MG/DL Calcium Level 9.0 MG/DL Sodium Level 136 MEQ/L Potassium Level 3.5 MEQ/L Chloride Level 97 MEQ/L Carbon Dioxide Level 27.7 MEQ/L Anion Gap 11 MEQ/L Estimat Glomerular Filtration Rate 124 ML/MIN Ethyl Alcohol Level 380 MG/DL Urine Opiates Screen NEG Urine Barbiturates Screen NEG Urine Amphetamines Screen NEG Urine Benzodiazepines Screen NEG Urine Cocaine Screen NEG Urine Cannabinoids Screen NEG MDM Supervised Visit with CHOLO: No Narrative Course MILAN Chi has evaluated the patient, but Gomez acuna and cleared the patient for discharge. Patient contracts safety. Denies suicidal or homicidal ideations. Patient will be provided community resource packet to /[facility] for follow-up. Has friends and family for support. Patient was medically cleared by alternate provider prior to psych screening. Patient has been evaluated by psychiatry and and is now cleared for discharge. Diagnosis Primary Impression: Substance induced mood disorder Referrals: [facility] (Out patient) [facility] Primary Care Physician Psychiatrist Jessica ACUNA Behavioral Patient Instructions: Abuse of Alcohol (ED), Alcohol Dependence (ED), Alcohol Intoxication (ED), General Instructions, Mood Disorders (ED) Additional Instruction: Contract safety to your self and others Stop using drugs and/or drinking alcohol Follow-up with psychiatry Follow-up with primary care provider Follow-up with Kedar Rush Return to the emergency department immediately with worsening of symptoms Med/Other Pt SpecificInfo: No Change to Meds, No Meds Exist/No RX given Scripts No Active Prescriptions or Reported Meds Disposition: 01 DISCHARGE HOME Condition: Stable Palma Triana Feb 12, 2017 14:23
[2017-02-12 15:17] VITALS: BP 108/54; PULSE 80; RESP 17; O2SAT 96
== END 2017-02-12 16:01 | disposition home or self-care (01) ==
LOC: NEPD 00:39 → NEPJ 16:01
DX: F19.94 Other psychoactive substance use, unspecified with psychoactive substance-induced mood disorder (principal); F10.229 Alcohol dependence with intoxication, unspecified; F31.9 Bipolar disorder, unspecified; F41.9 Anxiety disorder, unspecified; F03.90 Unspecified dementia, unspecified severity, without behavioral disturbance, psychotic disturbance, mood disturbance, and anxiety; F20.9 Schizophrenia, unspecified; R56.9 Unspecified convulsions; F17.200 Nicotine dependence, unspecified, uncomplicated
CPT/HCPCS: 80048; 80307; 85025; 99284